=== PATIENT | male | born 1990 | race Caucasian/White ===

== ENCOUNTER 2021-02-11 13:46 | Inpatient (IN) | payer OTHER ==
[~2021-02-11] VITALS: Ht 185.4 cm; Wt 91.6 kg
--- NOTE | 2021-02-11 14:45 | NUR ---
BIBS FOR C/O ABDOMINAL 5/10 & BACK PAIN 5/10 SINCE LAST NIGHT -N/V/D. ABDOMEN SOFT AND NON-DISTENDED. WILL CONTINUE TO MONITOR THE PATIENT. .
--- NOTE | 2021-02-11 15:32 | NUR ---
IV LINE IS ESTABLISHED, BLOOD SPECIMEN COLLECTED AND SENT TO THE LAB. THE LINE IS SALINE LOCKED.
--- NOTE | 2021-02-11 15:35 | NUR ---
THE PATIENT IS UNABLE TO PROVIDE URINE AT THIS TIME. WILL TRY TO URINATE AGAIN LATER.
[2021-02-11 15:37] LABS: BASOPHILS % (AUTO) 0.5 % (0.0-2.0); EOSINOPHILS % (AUTO) 0.4 % (0.0-6.0); HEMATOCRIT 46 % (39-51); HEMOGLOBIN 15.5 g/dL (13.5-17.5); LYMPHOCYTES # (AUTO) 1.6 K/uL (0.8-4.8); LYMPHOCYTES % (AUTO) 16.1 % (20.0-44.0); MEAN CORPUSCULAR HGB CONC 34 g/dl (31.0-36.0); MEAN CORPUSCULAR VOLUME 90 fL (80-96); MONOCYTES # (AUTO) 0.7 K/uL (0.1-1.30); MONOCYTES % (AUTO) 7.2 % (2.0-12.0); NEUTROPHILS # (AUTO) 7.4 K/uL (1.8-8.9); NEUTROPHILS % (AUTO) 75.8 % (43.0-81.0); PLATELET COUNT (AUTO) 277 K/uL (150-450); RED BLOOD CELL COUNT(AUTO) 5.07 MIL/uL (4.5-6.0); WHITE BLOOD COUNT (AUTO) 9.7 K/uL (4.3-11.0)
[2021-02-11 16:11] LABS: CALCIUM, SERUM 9.5 mg/dL (8.5-10.1); CREATININE 1.1 mg/dL (0.6-1.3)
[2021-02-11 16:16] LABS: BILIRUBIN,URINE SMALL (NEGATIVE); COLOR,URINE YELLOW (YELLOW); LEUKOCYTE ESTERASE ,URINE Negative (NEGATIVE); NITRITE, URINE Negative (NEGATIVE); PROTEIN,URINE Negative (NEGATIVE); UGLUCOSE Negative (NEGATIVE); UROBILINOGEN,URINE 0.2 EU/dL (0.2)
[2021-02-11 16:18] LABS: ALBUMIN 4.1 g/dL (3.4-5.0); BILIRUBIN,DIRECT 1.4 mg/dL (0.0-0.2); BILIRUBIN,TOTAL 1.8 mg/dL (0.2-1.0); TOTAL PROTEIN, SERUM 7.5 g/dL (6.4-8.2)
--- NOTE | 2021-02-11 16:18 | NUR ---
URINE COLLECTED AND SENT TO LAB
[2021-02-11] MEDS ORDERED: FLAGYL/NS RTU 500 MG/100 ML PIGGYBACK IV ONE (16:30)
--- NOTE | 2021-02-11 16:57 | NUR ---
PAGED DR. MARQUES SURGERY COMMUNITY SERVICE MANAGER.
[2021-02-11] MEDS: CIPROFLOXACIN IV RTU 400 MG in PREMIX 1 EA IV SCH (17:00)
--- NOTE | 2021-02-11 17:20 | NUR ---
CALLED NURSING SUP REGARDING PT BED.
--- NOTE | 2021-02-11 17:23 | NUR ---
DR. ONEILL TO DR. BRYANT
--- NOTE | 2021-02-11 18:06 | NUR ---
DR. BRYANT ASKED DR. LONGORIA TO PRESENT PATIENT TO NIGHT PHYSICIAN, DR. FOY. WILL PAGE EPIC ONCE HARBOR MASTER BEGINS.
--- NOTE | 2021-02-11 18:36 | NUR ---
NURSING SUP CALLED AND BED IS 323-1
--- NOTE | 2021-02-11 18:47 | NUR ---
ROOM 323-1
--- NOTE | 2021-02-11 19:17 | NUR ---
REPORT GIVEN TO NURSE ZAKI
[2021-02-11] MEDS ORDERED: ANESTHESIA TRAY IN PYXIS 1 EA TRAY MC ONE (19:44)
[2021-02-11] MEDS ORDERED: hydrALAZINE HCL IV 20 MG VIAL IV PRN (20:00)
[2021-02-11] MEDS ORDERED: ONDANSETRON HCL/PF 4 MG/2 ML VIAL IVP PRN (20:00)
[2021-02-11] MEDS ORDERED: ACETAMINOPHEN 325 MG TABLET PO PRN (20:00)
[2021-02-11] MEDS ORDERED: IV NS 0.9% 1,000 ML IV PRN (20:00)
--- NOTE | 2021-02-11 20:15 | NUR ---
ADMISSION NOTES PATIENT ARRIVED VIA WHEELCHAIR ACCOMPANIED BY EMT @2015. AOx4. ABLE TO MAKE NEEDS KNOWN. ON RA AND TOLERATING WELL. NO SOB NOTED. NO S/SX O RESPIRATORY DISTRESS NOTED. IV ACCESS IN RAC#20. IV IS INTACT, PATENT, AND FLUSHING WELL. COMPLAINS OF 4/10 PAIN. SAFETY PRECAUTIONS IN PLACE: BED IN LOWEST, LOCKED POSITION, SIDERAILS UPx2, AND BRAKES ON. TABLE AND CALL LIGHT WITHIN REACH. WILL CONTINUE TO MONITOR.
--- NOTE | 2021-02-11 20:20 | NUR ---
PATIENT TRANSFERRED TO [facility]- VIA WHEELCHAIR IN STABLE CONDITION.
[2021-02-11] MEDS: MORPHINE SULFATE INJ 2 MG/ML DISP.SYRIN IV PRN (21:46)
--- NOTE | 2021-02-11 21:46 | NUR ---
ADMINISTERED MORPHINE PER MD ORDER. VS WNL. WILL CONTINUE TO MONITOR.
[2021-02-11 22:01] VITALS: BP 125/83
[2021-02-12] VITALS: BP 125/83
[2021-02-12] MEDS: MORPHINE SULFATE INJ 2 MG/ML DISP.SYRIN IV PRN (03:22)
--- NOTE | 2021-02-12 03:23 | NUR ---
ADMINISTERED MORPHINE PER MD ORDER. VS WNL. WILL CONTINUE TO MONITOR.
[2021-02-12] MEDS ORDERED: CIPROFLOXACIN IV RTU 200 ML IV ONE (04:41)
[2021-02-12] MEDS: CIPROFLOXACIN IV RTU 400 MG in PREMIX 1 EA IV SCH (04:59)
--- NOTE | 2021-02-12 06:51 | NUR ---
MS RN CLOSING NOTES PT IN BED, SLEEPING, AWAKENS TO VERBAL STIMULI. AOx4. ABLE TO MAKE NEEDS KNOWN. ON RA AND TOLERATING WELL. NO SOB NOTED. NO S/SX O RESPIRATORY DISTRESS NOTED. IV ACCESS IN RAC#20. IV IS INTACT, PATENT, AND FLUSHING WELL. ALL NEEDS MET. PT KEPT CLEAN AND DRY. TREATED PAIN THROUGHOUT SHIFT. KEPT PT NPO POST MIDNIGHT. SAFETY PRECAUTIONS IN PLACE: BED IN LOWEST, LOCKED POSITION, SIDERAILS UPx2, AND BRAKES ON. TABLE AND CALL LIGHT WITHIN REACH. WILL ENDORSE TO ONCOMING SHIFT FOR KOBE.
[2021-02-12 07:15] LABS: ALBUMIN 3.6 g/dL (3.4-5.0); BILIRUBIN,TOTAL 1.7 mg/dL (0.2-1.0); CALCIUM, SERUM 8.4 mg/dL (8.5-10.1); MAGNESIUM 2.2 mg/dL (1.8-2.4); PHOSPHORUS 3.9 mg/dL (2.5-4.9); TOTAL PROTEIN, SERUM 6.8 g/dL (6.4-8.2)
[2021-02-12 07:18] LABS: BASOPHILS % (AUTO) 0.5 % (0.0-2.0); EOSINOPHILS % (AUTO) 1.5 % (0.0-6.0); HEMATOCRIT 43 % (39-51); HEMOGLOBIN 14.7 g/dL (13.5-17.5); LYMPHOCYTES # (AUTO) 1.7 K/uL (0.8-4.8); LYMPHOCYTES % (AUTO) 21.6 % (20.0-44.0); MEAN CORPUSCULAR HGB CONC 34 g/dl (31.0-36.0); MEAN CORPUSCULAR VOLUME 91 fL (80-96); MONOCYTES # (AUTO) 0.7 K/uL (0.1-1.30); MONOCYTES % (AUTO) 8.5 % (2.0-12.0); NEUTROPHILS # (AUTO) 5.4 K/uL (1.8-8.9); NEUTROPHILS % (AUTO) 67.9 % (43.0-81.0); PLATELET COUNT (AUTO) 249 K/uL (150-450); RED BLOOD CELL COUNT(AUTO) 4.75 MIL/uL (4.5-6.0)
--- NOTE | 2021-02-12 07:30 | NUR ---
MS RN OPENING NOTES RECEIVED PATIENT ON BED, AWAKE AND A/O X4. ON ROOM AIR BREATHING EVENLY AND UNLABORED. NOT IN DISTRESS. WITH NO COMPLAINTS OF PAIN AT THIS TIME. WITH IV ACCESS AT RIGHT AC G20 SALINE LOCKED, PATENT AND INTACT. FOR APPENDECTOMY SURGERY TODAY. ON NPO SINCE MIDNIGHT. SAFETY MEASURES IN PLACED. CALL LIGHT WITHIN REACH. BED ON LOWEST AND LOCKED POSITION, SIDE RAILS UP X2. WILL CONTINUE TO MONITOR.
[2021-02-12 08:00] VITALS: BP 123/77
[2021-02-12] MEDS ORDERED: BUPIVACAINE MPF W/EPI 0.25% 30 ML VIAL ONE (08:18)
[2021-02-12] MEDS ORDERED: LIDOCAINE HCL/PF 1% 30 ML SDV ONE (08:18)
[2021-02-12] MEDS ORDERED: BUPIVACAINE 0.5 % PF 150 MG/30 ML VIAL ONE (08:18)
[2021-02-12] MEDS ORDERED: MIDAZOLAM HCL 2 MG/2ML VIAL ONE (08:29)
[2021-02-12] MEDS ORDERED: FENTANYL PF 100MCG/2ML AMPUL ONE ×2 (08:29→09:10)
[2021-02-12] MEDS ORDERED: ROCURONIUM BROMIDE 50 MG/5 ML ONE (08:29)
[2021-02-12] MEDS ORDERED: MENTHOL/CETYLPYRD (CEPACOL) 1 LOZ LOZENGE ONE (09:46)
[2021-02-12] MEDS ORDERED: TETRACAINE/BENZOCAINE/BUTAMBEN 56 GM SPRAY TP ONE (09:47)
[2021-02-12] MEDS ORDERED: HYDROMORPHONE 1 MG/1 ML DISP.SYRIN ONE (09:53)
[2021-02-12 10:50] VITALS: BP 133/77
--- NOTE | 2021-02-12 10:50 | NUR ---
RN NOTES RECEIVED PATIENT FROM OR WITH STABLE VITAL SIGNS.
[2021-02-12 11:20] VITALS: BP 130/70
[2021-02-12 11:50] VITALS: BP 125/78
[2021-02-12 12:50] VITALS: BP 124/78
[2021-02-12] MEDS ORDERED: HYDROCODONE/APAP 5/325MG TABLET PO PRN (13:00)
[2021-02-12] MEDS ORDERED: NICOTINE PATCH (21MG) 21 MG PATCH.TD24 TD SCH (14:00)
[2021-02-12] MEDS ORDERED: INFLUENZA VACCINE 2021-22 0.5 ML DISP.SYRIN IM ONE ×2 (14:30→18:00)
--- NOTE | 2021-02-12 18:45 | NUR ---
MS INTERNET MARKETER NOTES PATIENT WAS SEEN BY DR. VELASCO WITH ORDERS FOR DISCHARGE TO [facility]. DISCHARGE INSTRUCTION AND EDUCATION PROVIDED TO PATIENT AND EXPLAINED MEDICATIONS AND PRESCRIPTIONS. PATIENT VERBALIZED UNDERSTANDING. DISCHARGE FORM AND BELONGINGS LIST FORM SIGNED BY PATIENT. ALL BELONGINGS ACCOUNTED FOR. NAME WRIST BAND AND IV LINE REMOVED. INJECTED FLU VACCINE TO PATIENT IM. PATIENT WAS PICKED UP BY [facility] IN STABLE CONDITION. CHARGE NURSE AND MD ARE AWARE OF THE DISCHARGE.
[2021-02-13] MEDS ORDERED: NICOTINE PATCH (21MG) 21 MG PATCH.TD24 TD SCH (09:00)
== END 2021-02-12 18:48 | DRG 234 ==
LOC: ER 14:04 → MED 20:34
PROVIDERS: ADMIT Internal Medicine; ATTEND Nurse Practitioner Family
PROC: 0DTJ4ZZ Resection of Appendix, Percutaneous Endoscopic Approach (ICD-10-PCS; principal; 2021-02-12)
DX: K35.80 Unspecified acute appendicitis (principal); F11.11 Opioid abuse, in remission; Z20.822 Contact with and (suspected) exposure to COVID-19; R74.01 Elevation of levels of liver transaminase levels
CPT/HCPCS: 36415; 76700-TC; 80048-TC; 80053-TC; 80076-TC; 83605-TC; 83690-TC; 83735-TC; 84100-TC; 85025-TC; 85610-TC; 85730-TC; 86850-TC; 87081-TC; 87086-TC; 88304-TC; A4216; C9803; G0378; J0330; J0690; J0744; J1100; J1170; J2250; J2270; J2405; J2704; J3010; J3490; J7030; Q2036

== ENCOUNTER 2021-03-24 22:38 | Emergency (ER) | payer OTHER ==
[~2021-03-24] VITALS: Ht 185.4 cm; Wt 95.3 kg
--- NOTE | 2021-03-25 00:27 | NUR ---
BIBS C/O DIFFUSED ABDOMINAL PAIN X3 DAYS "WORST TODAY" RADIATING TO MID BACK. TOOK IBUPROFEN LACE WINDER. -N/V +DIAHRREA. PT CHANGED INTO A GOWN AND PLACED ON MONITOR. RESPIRATIONS EVEN AND UNLABORED AND ALL V/S STABLE.
[2021-03-25] MEDS ORDERED: ONDANSETRON HCL/PF 4 MG/2 ML VIAL ONE (01:12)
[2021-03-25] MEDS ORDERED: MORPHINE SULFATE INJ 4 MG/ML DISP.SYRIN ONE (01:12)
--- NOTE | 2021-03-25 01:18 | NUR ---
BLOOD COLLECTED AND SENT TO LAB
--- NOTE | 2021-03-25 01:18 | NUR ---
URINE COLLECTED AND SENT TO LAB
--- NOTE | 2021-03-25 01:19 | NUR ---
COVID SWAB DONE AND SENT TO LAB
[2021-03-25] MEDS ORDERED: ONDANSETRON HCL/PF 4 MG/2 ML VIAL IVP ONE (01:30)
[2021-03-25] MEDS ORDERED: MORPHINE SULFATE INJ 2 MG/ML DISP.SYRIN IV ONE (01:30)
[2021-03-25] MEDS ORDERED: IV NS 0.9% 1,000 ML BAG IV ONE (01:30)
--- NOTE | 2021-03-25 01:35 | NUR ---
[facility]
[2021-03-25 01:44] LABS: BASOPHILS % (AUTO) 0.3 % (0.0-2.0); EOSINOPHILS % (AUTO) 1.1 % (0.0-6.0); HEMATOCRIT 44 % (39-51); HEMOGLOBIN 15.1 g/dL (13.5-17.5); LYMPHOCYTES # (AUTO) 2.3 K/uL (0.8-4.8); LYMPHOCYTES % (AUTO) 24.5 % (20.0-44.0); MEAN CORPUSCULAR HGB CONC 35 g/dl (31.0-36.0); MEAN CORPUSCULAR VOLUME 89 fL (80-96); MONOCYTES # (AUTO) 0.8 K/uL (0.1-1.30); NEUTROPHILS # (AUTO) 6.1 K/uL (1.8-8.9); NEUTROPHILS % (AUTO) 65.1 % (43.0-81.0); PLATELET COUNT (AUTO) 239 K/uL (150-450); RED BLOOD CELL COUNT(AUTO) 4.89 MIL/uL (4.5-6.0); WHITE BLOOD COUNT (AUTO) 9.3 K/uL (4.3-11.0)
--- NOTE | 2021-03-25 01:45 | NUR ---
PT RETURNED FROM CT
--- NOTE | 2021-03-25 01:45 | NUR ---
MATT CRAMER AT PT'S BEDSIDE
[2021-03-25 02:04] LABS: CALCIUM, SERUM 8.9 mg/dL (8.5-10.1); CREATININE 1.1 mg/dL (0.6-1.3); POTASSIUM 3.7 mmol/L (3.5-5.1)
[2021-03-25 02:08] LABS: BILIRUBIN,URINE SMALL (NEGATIVE); COLOR,URINE YELLOW (YELLOW); LEUKOCYTE ESTERASE ,URINE NEGATIVE (NEGATIVE); NITRITE, URINE NEGATIVE (NEGATIVE); PROTEIN,URINE NEGATIVE (NEGATIVE); UGLUCOSE NEGATIVE (NEGATIVE); UROBILINOGEN,URINE 0.2 EU/dL (0.2)
[2021-03-25 02:10] LABS: ALBUMIN 3.8 g/dL (3.4-5.0); BILIRUBIN,DIRECT 0.5 mg/dL (0.0-0.2); BILIRUBIN,TOTAL 0.8 mg/dL (0.2-1.0); TOTAL PROTEIN, SERUM 6.9 g/dL (6.4-8.2)
[2021-03-25 02:15] LABS: BACTERIA,URINE None seen /HPF (None Seen); RBC,URINE 0-2 /HPF (0-2); SQUAMOUS EPITHELIAL CELL,UR Few /HPF (None Seen); WBC,URINE 0-2 /HPF (0-3)
--- NOTE | 2021-03-25 03:55 | NUR ---
Patient discharged to home in stable condition. Written and verbal after care instructions given. Patient verbalizes understanding of instruction. IV line discontinued and gauze applied to site.
[2021-03-25 03:58] VITALS: BP 121/69
[2021-03-25] MEDS ORDERED: IBUP-1957 PO (16:45)
== END 2021-03-25 03:58 | disposition home or self-care (01) ==
LOC: ER 22:43
DX: R10.84 Generalized abdominal pain (principal); R74.01 Elevation of levels of liver transaminase levels; Z20.822 Contact with and (suspected) exposure to COVID-19; R03.0 Elevated blood-pressure reading, without diagnosis of hypertension
CPT/HCPCS: 36415; 74176; 80048; 80076; 81001; 83690; 85025; 87426; 96361; 96374; 96375; 99284; C9803; J2270; J2405; J7030

== ENCOUNTER 2021-03-25 12:49 | Emergency (ER) | payer OTHER ==
[~2021-03-25] VITALS: Ht 185.4 cm; Wt 95.3 kg
--- NOTE | 2021-03-25 13:16 | NUR ---
PT C/O ABD PAIN & SENT BY [facility] FOR ABNORMAL LIVER FUNCTION. PT AAOX4, VSS. RR EVEN & UNLABORED. DENIES CP, SOB, DIZZINESS, N/V AT THIS TIME. WILL CONT TO MONITOR.
[2021-03-25 15:00] LABS: BASOPHILS % (AUTO) 0.3 % (0.0-2.0); EOSINOPHILS % (AUTO) 1.6 % (0.0-6.0); HEMATOCRIT 43 % (39-51); HEMOGLOBIN 14.5 g/dL (13.5-17.5); LYMPHOCYTES # (AUTO) 1.2 K/uL (0.8-4.8); LYMPHOCYTES % (AUTO) 15.4 % (20.0-44.0); MEAN CORPUSCULAR HGB CONC 34 g/dl (31.0-36.0); MEAN CORPUSCULAR VOLUME 91 fL (80-96); MONOCYTES # (AUTO) 0.6 K/uL (0.1-1.30); MONOCYTES % (AUTO) 7.8 % (2.0-12.0); NEUTROPHILS # (AUTO) 5.8 K/uL (1.8-8.9); NEUTROPHILS % (AUTO) 74.9 % (43.0-81.0); PLATELET COUNT (AUTO) 227 K/uL (150-450); RED BLOOD CELL COUNT(AUTO) 4.73 MIL/uL (4.5-6.0); WHITE BLOOD COUNT (AUTO) 7.8 K/uL (4.3-11.0)
[2021-03-25 15:27] LABS: CALCIUM, SERUM 9.1 mg/dL (8.5-10.1); CREATININE 1.2 mg/dL (0.6-1.3)
[2021-03-25 15:40] LABS: ALBUMIN 3.5 g/dL (3.4-5.0); BILIRUBIN,DIRECT 0.4 mg/dL (0.0-0.2); TOTAL PROTEIN, SERUM 6.6 g/dL (6.4-8.2)
--- NOTE | 2021-03-25 15:57 | NUR ---
TOOL PLANNER AT PT'S BEDSIDE
--- NOTE | 2021-03-25 16:24 | NUR ---
URINE COLLECTED AND SENT TO LAB
[2021-03-25] MEDS ORDERED: IBUP-1957 PO (16:45)
--- NOTE | 2021-03-25 17:00 | NUR ---
Patient discharged to home in stable condition. Written and verbal after care instructions given. Patient verbalizes understanding of instruction.
[2021-03-25 17:01] VITALS: BP 127/76
[2021-03-25 18:25] LABS: BILIRUBIN,URINE NEGATIVE (NEGATIVE); COLOR,URINE YELLOW (YELLOW); LEUKOCYTE ESTERASE ,URINE NEGATIVE (NEGATIVE); NITRITE, URINE NEGATIVE (NEGATIVE); PROTEIN,URINE NEGATIVE (NEGATIVE); UGLUCOSE NEGATIVE (NEGATIVE); UROBILINOGEN,URINE 0.2 EU/dL (0.2)
== END 2021-03-25 17:01 | disposition home or self-care (01) ==
LOC: ER 12:50
DX: K75.9 Inflammatory liver disease, unspecified (principal); Z60.2 Problems related to living alone
CPT/HCPCS: 36415; 80048-TC; 80074; 80076-TC; 82140-TC; 83690-TC; 85025-TC; 85730-TC

== ENCOUNTER 2021-08-04 16:51 | Emergency (ER) | payer OTHER ==
[~2021-08-04] VITALS: Ht 185.4 cm; Wt 91.6 kg
[~2021-08-04 16:51] MED LIST: IBUP-1957 PO
--- NOTE | 2021-08-04 16:51 | NUR ---
PT BIB SELF REQUESTING MEDICAL CLEARANCE TO GO TO [facility]. PT IS AAOX4, NOT IN RESPIRATORY DISTRESS, V/S STABLE, KEPT RESTED AND COMFORTABLE. WILL CONTINUE TO MONITOR.
--- NOTE | 2021-08-04 17:00 | NUR ---
SEEN AND EXAMINED BY .
--- NOTE | 2021-08-04 17:10 | NUR ---
ER PHLEB AT BEDSIDE FOR BLOOD DRAW.
--- NOTE | 2021-08-04 17:16 | NUR ---
COVID AND URINE SPECIMEN COLLECTED AND SENT TO LAB.
[2021-08-04 17:26] LABS: BASOPHILS % (AUTO) 0.4 % (0.0-2.0); EOSINOPHILS % (AUTO) 3.6 % (0.0-6.0); HEMATOCRIT 40 % (39-51); HEMOGLOBIN 13.6 g/dL (13.5-17.5); LYMPHOCYTES # (AUTO) 2.4 K/uL (0.8-4.8); MEAN CORPUSCULAR HGB CONC 35 g/dl (31.0-36.0); MEAN CORPUSCULAR VOLUME 86 fL (80-96); MONOCYTES # (AUTO) 0.6 K/uL (0.1-1.30); MONOCYTES % (AUTO) 8.1 % (2.0-12.0); NEUTROPHILS # (AUTO) 4.1 K/uL (1.8-8.9); NEUTROPHILS % (AUTO) 55.9 % (43.0-81.0); PLATELET COUNT (AUTO) 300 K/uL (150-450); RED BLOOD CELL COUNT(AUTO) 4.58 MIL/uL (4.5-6.0); WHITE BLOOD COUNT (AUTO) 7.3 K/uL (4.3-11.0)
[2021-08-04 17:35] LABS: CALCIUM, SERUM 8.9 mg/dL (8.5-10.1); CARBON DIOXIDE 35 mmol/L (21-32); CHLORIDE 102 mmol/L (98-107); CREATININE 1.2 mg/dL (0.6-1.3); GLUCOSE 74 mg/dL (74-106); POTASSIUM 3.7 mmol/L (3.5-5.1); SODIUM SERUM 140 mmol/L (136-145); UREA NITROGEN, BLOOD 14 mg/dL (7-18)
[2021-08-04 17:42] LABS: ALANINE AMINOTRANSFERASE 37 U/L (12-78); ALBUMIN 3.7 g/dL (3.4-5.0); ALCOHOL, BLOOD < 3 mg/dL (0-0); ALKALINE PHOSPHATASE 98 U/L (46-116); ASPARTATE AMINOTRANSFERASE 23 U/L (15-37); BILIRUBIN,DIRECT 0.1 mg/dL (0.0-0.2); BILIRUBIN,TOTAL 0.4 mg/dL (0.2-1.0); TOTAL PROTEIN, SERUM 6.9 g/dL (6.4-8.2)
[2021-08-04 17:45] LABS: BILIRUBIN,URINE NEGATIVE (NEGATIVE); COLOR,URINE YELLOW (YELLOW); LEUKOCYTE ESTERASE ,URINE NEGATIVE (NEGATIVE); NITRITE, URINE NEGATIVE (NEGATIVE); PH,URINE 5.5 (5.0-8.0); PROTEIN,URINE NEGATIVE (NEGATIVE); UGLUCOSE NEGATIVE (NEGATIVE)
[2021-08-04 18:33] LABS: BACTERIA,URINE None seen /HPF (None Seen); MUCUS,URINE Few /LPF (None Seen); SQUAMOUS EPITHELIAL CELL,UR 0-2 /HPF (None Seen); WBC,URINE 0-2 /HPF (0-3)
[2021-08-04] MEDS ORDERED: NALO4SPR BNOSTRILS (18:53)
--- NOTE | 2021-08-04 19:09 | NUR ---
Patient discharged to home in stable condition. Written and verbal after care instructions given. Patient verbalizes understanding of instruction.
[2021-08-04 19:10] VITALS: BP 138/68
== END 2021-08-04 19:10 | disposition home or self-care (01) ==
LOC: ER 16:55
DX: F19.10 Other psychoactive substance abuse, uncomplicated (principal); F15.10 Other stimulant abuse, uncomplicated; F11.10 Opioid abuse, uncomplicated; F13.10 Sedative, hypnotic or anxiolytic abuse, uncomplicated; Z20.822 Contact with and (suspected) exposure to COVID-19; F12.10 Cannabis abuse, uncomplicated
CPT/HCPCS: 36415; 80048; 80076; 80143; 80307; 80320; 81001; 85025; 87426; 99284; C9803; G0480